=== PATIENT | female | born 1945 | race Caucasian/White ===

== ENCOUNTER 2018-11-12 16:51 | Inpatient (IN) | payer MEDICARE ==
[2018-11-12 17:38] LABS: #Basophils 0.1 thou/uL (0.0-0.2); #Eosinphils 0.4 thou/uL (0.0-0.7); #Lymphocytes 1.7 thou/uL (1.20-3.40); #Monocytes 0.7 thou/uL (0.11-0.59); #Neutrophils 5.1 thou/uL (1.40-6.50); %Basophils 0.8 % (0.0-1.0); %Eosinophils 5.1 % (0.0-10.0); %Lymphocytes 21.5 % (21.0-51.0); %Monocytes 8.8 % (0.0-10.0); %Neutrophils 63.7 % (42.0-75.0); Hemoglobin 10.5 g/dL (12.0-16.0); Mean Corpuscular HGB CONC 34.3 g/dL (32.0-36.0); Mean Corpuscular Hemoglobin 34.8 pg (27.0-31.0); Mean Platelet Volume 6.6 fL (7.4-10.4); Platelet Count 299 thou/uL (130-400); RBC Distribution Width 13.3 % (11.5-14.5); Red Blood Cell (RBC) Count 3.01 mill/uL (4.20-5.40); White Blood Cell (WBC) Count 8.1 thou/uL (4.8-10.8)
--- NOTE | 2018-11-12 17:49 | RAD ---
EXAM: Single view of the chest HISTORY: Preoperative radiograph COMPARISON: 08/03/2016 FINDINGS: Single view of the chest shows a normal sized cardiomediastinal silhouette. A calcified gr anuloma projects over the right lower lobe. There is no evidence of consolidation or pleural effusion. The bones are unremarkable. IMPRESSION: No evidence of acute cardiopulmonary disease
--- NOTE | 2018-11-12 17:50 | RAD ---
Exam: Single view of the pelvis HISTORY: Fall with deformity of the left hip COMPARISON: None FINDINGS: There is a left femoral neck fracture. No degenerative changes seen in either hip. Moderate soft tissue swelling is seen. IMPRESSION: Left femoral neck fracture
--- NOTE | 2018-11-12 17:51 | RAD ---
EXAM: 2 views of the left hip HISTORY: Left hip pain after fall COMPARISON: None FINDINGS: 2 views of the left hip shows a fracture of the left femoral neck. No degenerative changes are seen. No dislocation is present. IMPRESSION: Left femoral neck fracture
[2018-11-12 18:00] LABS: ALT (SGPT) 12 U/L (8-55); AST (SGOT) 13 U/L (5-34); Albumin 3.5 g/dL (3.4-4.8); Alkaline Phosphatase 78 U/L (40-150); Anion Gap 9 mmol/L (10-20); BUN (Urea Nitrogen) 7 mg/dL (9.8-20.1); Bilirubin, Total 0.4 mg/dL (0.2-1.2); CK (CPK) 60 U/L (29-168); Calc. Creatinine Clearance 0 mL/min (70-130); Calcium 8.1 mg/dL (7.8-10.44); Carbon Dioxide 22 mmol/L (23-31); Chloride 110 mmol/L (98-107); Estimated GFR-MDRD 81; Globulin 2.7 g/dL (2.4-3.5); Glucose 99 mg/dL (83-110); Potassium 3.1 mmol/L (3.5-5.1); Protein, Total 6.2 g/dL (6.0-8.3); Sodium 138 mmol/L (136-145)
[2018-11-12] MEDS ORDERED: Dextrose 5% in Water 1,000 ML IV PRN (18:30)
[2018-11-12] MEDS ORDERED: Dextrose 50% Abboject 50 ML SYRINGE SLOW IVP PRN (18:30)
[2018-11-12] MEDS ORDERED: HumaLOG 300 UNITS/3 ML VIAL SC PRN (18:30)
[2018-11-12] MEDS ORDERED: Ketorolac Tromethamine 30 MG/ML VIAL IVP PRN (18:34)
[2018-11-12] MEDS ORDERED: Ondansetron PF 4 MG/2 ML Vial ONE ×2 (18:35→18:36)
[2018-11-12] MEDS ORDERED: traMADol HCl 50 MG TAB PO PRN ×2 (18:35)
[2018-11-12] MEDS ORDERED: Morphine 4 MG/ML VIAL ONE (18:35)
--- NOTE | 2018-11-12 19:39 | HP ---
HISTORY OF PRESENT ILLNESS: Ms. Cantu is a 72-year-old female, who came into the ER for left hip pain after a mechanical fall at home. The patient reports she was visiting relative in [place], and while she was walking in a walker, something got stuck in the wheel of her walker, caused her to fall backward. She recall did not hit her head or loss of consciousness at the moment. After fell she had pain from the left hip. No pain of other parts of her body was reported. She went to the ER in [place]. Doctor in [place] talked that she would be better if she look for a surgeon in her hometown, so that is why she was sent home with hydrocodone and Cipro with family from [place] to [place], and admitted to the ER 3 days later. Upon arrival in the ER, the patient is awake, alert, and oriented x3. Vital signs stable. Complain of left hip pain. PAST MEDICAL HISTORY: The patient has a past medical history of COPD, using albuterol and Spiriva regularly. PAST SURGICAL HISTORY: She had multiple C-spine and lumbar spine surgeries include diskectomy and fusion due to spinal stenosis and herniated disk, that is the course of her to have a weak balance and she is using a walker regularly at home. SOCIAL HISTORY: She lives at home with her . She retired nurse. She reports using marijuana for pain. She uses tobacco from 4 tobacco to one pack a day. She denies drinking alcohol. The patient has a history of PTSD from previous divorce, bipolar depression, in which she used medication regularly. ALLERGIES: NO KNOWN DRUG ALLERGY. CURRENT MEDICATIONS: 1. Clonazepam 3 to 4 times a day. 2. Spiriva. 3. Albuterol inhaler. 4. Fluoxetine 40 mg daily. REVIEW OF SYSTEMS: Noncontributory except per HPI. PHYSICAL EXAMINATION: GENERAL: The patient is lying down in bed comfortably with no acute distress. Skin is pink and warm. The patient is oriented x3. Alert and awake. VITAL SIGNS: Respiratory rate 18, O2 saturation 95 on room air, blood pressure 152/88, and heart rate 81. HEENT: Atraumatic. No bruising. No deformity. No tender to palpation. NECK: Trachea midline. CHEST: No deformity. No bruising. Chest wall rise equal bilaterally. No tender to palpation. LUNGS: Clear bilaterally. HEART: Regular rate and rhythm. ABDOMEN: Soft, nondistended. No deformity. No tender to palpation. No rebound. Pelvis is stable. EXTREMITIES: Neurovascularly intact x4. Left hip, limited range of motion due to pain. NEUROLOGIC: No focal neurology deficits. LABORATORY DATA: Initial workup shows sodium 138, potassium 3.1, creatinine 0.71, CK 60. Hemoglobin 10.5, white count 8.1, and platelets 299. DIAGNOSTIC DATA: X-ray of the left hip demonstrates left femoral neck fracture. Chest x-ray shows no evidence of acute cardiopulmonary disease. ASSESSMENT: 1. Status post mechanical ground level fall. 2. Left hip fracture. 3. History of multiple neck and lumbar spine surgery, history of chronic obstructive pulmonary disease, posttraumatic stress disorder, and bipolar. PLAN: Dr. Manriquez will consult. Dr. Manriquez will take the patient to go to the OR for ORIF of left hip fracture tomorrow. The patient will be admitted to surgical floor for pain control and IV fluid. The patient will be on n.p.o. at midnight. She will initiate nonpharmacological DVT prophylaxis. Initiate gastritis prophylaxis. We will resume her home medication as soon as possible. Job ID: [id number]
[2018-11-12] MEDS ORDERED: clonazePAM 1 MG TAB PO SCH (21:00)
[2018-11-12] MEDS ORDERED: Gabapentin 100 MG CAP PO SCH (21:00)
[2018-11-12] MEDS: Sodium Chloride 0.9% 1,000 ML IV SCH (21:09)
[2018-11-12] MEDS: Acetaminophen 1,000 MG in Premix Bag 1 BAG IVPB SCH (21:09)
[2018-11-12] MEDS: Senokot S 8.6-50 MG TAB PO SCH (21:13)
[2018-11-12] MEDS: clonazePAM 1 MG TAB PO SCH (21:13)
[2018-11-12] MEDS: Famotidine/PF 20 mg/2ml Vial SLOW IVP SCH (21:13)
[2018-11-12] MEDS: Ketorolac Tromethamine 30 MG/ML VIAL IVP SCH (21:13)
--- NOTE | 2018-11-12 21:43 | CON ---
DATE OF CONSULTATION: CHIEF COMPLAINT: Left hip pain. HISTORY OF PRESENT ILLNESS: Ms. Cantu is a 72-year-old female who was out of town in [place] visiting family. She went with her cousin. She unfortunately fell while she was away. She sustained an injury to her left hip. She was found to have a left femoral neck fracture at the local emergency room. She decided to come back home to be treated. She was driven back home again by her family. She reports having a painful trip, but was able to make it back to [place] for further treatment. The patient has received pain medications. Orthopedics was consulted for treatment of her hip fracture. REVIEW OF SYSTEMS: Positive for left hip pain with movement. Otherwise, negative 10-point review of systems. PAST SURGICAL HISTORY: Cervical fusion. PAST MEDICAL HISTORY: Osteoporosis with previous compression fractures of the lumbar spine as well as mild COPD. FAMILY MEDICAL HISTORY: Noncontributory. SOCIAL HISTORY: The patient lives independently. She does use a walker for balance. She has a long history of smoking and occasional alcohol use. IMAGING DATA: X-rays are reviewed of the pelvis and left hip. These demonstrated displaced left femoral neck fracture. PHYSICAL EXAMINATION: VITAL SIGNS: Stable. She is afebrile, normotensive. GENERAL: She is alert and oriented. HEENT: Normocephalic and atraumatic. RESPIRATORY: Breathing comfortably. ABDOMEN: Soft, nontender, and nondistended. MUSCULOSKELETAL: The patient's left lower extremity has shortening. She has pain with hip motion. She is able to flex and extend the foot and ankle. She has a palpable dorsalis pedis pulse and sensation is intact in the foot. Right lower extremity and upper extremities are atraumatic. IMPRESSION: Left femoral neck fracture in a 72-year-old female. PLAN: The patient will be admitted to the hospital. She will have pain control. She will have DVT prophylaxis. She will have antibiotic surgical prophylaxis. She will need surgical intervention for this injury. I have discussed options. We will plan for a hemiarthroplasty of the left hip to restore function and prevent complications of prolonged bed rest. Risks have been reviewed, which to include DVT, PE, infection, wound complication, instability of the hip or implants, and others. She wants to proceed. Job ID: [id number]
[2018-11-12] MEDS: Morphine 2 MG/ML SYRINGE SLOW IVP PRN (22:02)
[2018-11-12] MEDS: Nicotine 14 MG PATCH TD SCH (22:02)
[2018-11-12 23:25] VITALS: BMI 18.8
--- NOTE | 2018-11-13 01:42 | PRG ---
DATE OF SERVICE: 11/13/2018 SUBJECTIVE: The patient is currently on the surgical floor. She has just moved up here from the emergency room. She is status post ground level fall that happened 3 days ago when she was visiting family. The patient had a ground level fall. She was evaluated in the emergency department, noted to have hip fracture, but per her decision, she returned to this area to undergo evaluation for surgery. PHYSICAL EXAMINATION: VITAL SIGNS: Stable. The patient is afebrile. GENERAL: The patient is resting comfortably in bed. She is awake, alert, and oriented x3. Sheri Coma Scale is 15. HEENT: Unremarkable. LUNGS: Clear to auscultation bilaterally. HEART: Regular rate and rhythm. ABDOMEN: Soft, flat, and nontender with active bowel sounds. EXTREMITIES: Neurovascularly intact x4. ASSESSMENT: 1. Status post ground level fall with remote presentation. 2. Left femoral neck fracture. 3. History of multiple neck and lumbar spine surgery, history of chronic obstructive pulmonary disease. 4. History of bipolar disorder and posttraumatic stress disorder. PLAN: Plan will be to have the patient be n.p.o. after midnight. We will do supportive care, pulmonary toilet, gastritis, mechanical VTE prophylaxis. The patient was evaluated in the emergency department by Dr. Manriquez and they planned to take her to the operating room tomorrow for surgical intervention. Job ID: [id number]
[2018-11-13] MEDS: Ketorolac Tromethamine 30 MG/ML VIAL IVP SCH ×4 (01:57→19:33)
[2018-11-13] MEDS: Morphine 2 MG/ML SYRINGE SLOW IVP PRN ×5 (01:57→21:50)
[2018-11-13] MEDS: Ondansetron PF 4 MG/2 ML Vial IVP PRN ×3 (01:59→19:41)
[2018-11-13] MEDS: Sodium Chloride 0.9% 1,000 ML IV SCH ×4 (02:02→21:50)
[2018-11-13] MEDS: Acetaminophen 1,000 MG in Premix Bag 1 BAG IVPB SCH ×3 (05:54→19:32)
[2018-11-13] MEDS ORDERED: Spiriva 18 MCG CAP (Box of 5 Caps) INH SCH (07:00)
[2018-11-13] MEDS: Senokot S 8.6-50 MG TAB PO SCH ×2 (08:19→19:34)
[2018-11-13] MEDS: Polyethylene Glycol 3350 17 GM Packet PO SCH (08:19)
[2018-11-13] MEDS: clonazePAM 1 MG TAB PO SCH ×3 (08:24→19:33)
[2018-11-13] MEDS: FLUoxetine HCl 20 MG CAP PO SCH (08:24)
[2018-11-13] MEDS: Famotidine/PF 20 mg/2ml Vial SLOW IVP SCH ×2 (08:24→19:33)
[2018-11-13] MEDS ORDERED: CEFAZOLIN 2 GM in Premix Bag 1 BAG IVPB SCH (12:00)
[2018-11-13] MEDS ORDERED: PROPOFOL 200 MG/20 ML VIAL ONE (12:50)
[2018-11-13] MEDS ORDERED: Rocuronium Bromide 10 MG/ML (10ML VIAL) ONE (12:50)
[2018-11-13] MEDS ORDERED: ePHEDrine 50 MG/ML VIAL ONE (12:50)
[2018-11-13] MEDS ORDERED: Lidocaine 1% PF 5 ML VIAL ONE (12:50)
[2018-11-13] MEDS ORDERED: Labetalol HCl 100 MG/20 ML VIAL ONE (12:50)
[2018-11-13] MEDS ORDERED: Fentanyl 100 MCG/2 ML VIAL ONE ×2 (13:13→14:27)
[2018-11-13] MEDS ORDERED: Midazolam HCl 2 mg/2 ml Vial ONE (13:24)
[2018-11-13] MEDS ORDERED: Promethazine HCl 25 MG/ML VIAL SLOW IVP PRN ×2 (13:57→15:16)
[2018-11-13] MEDS ORDERED: Promethazine HCl 25 MG/ML VIAL IM PRN ×2 (13:57→15:16)
[2018-11-13] MEDS ORDERED: Ondansetron HCl/PF 4 MG/2 ML Vial IVP PRN ×2 (13:57→15:16)
--- NOTE | 2018-11-13 15:14 | PRG ---
DATE OF SERVICE: 11/13/2018 SUBJECTIVE: The patient remains on the surgical floor. She is status post ground level fall, which she sustained left hip fracture 3 days ago while visiting family. She has been n.p.o. overnight. She has been awaiting her surgery today. She states that her pain is moderately controlled, and we will address this. OBJECTIVE: VITAL SIGNS: Temperature is 97.9, heart rate 71, blood pressure 132/61, respirations 16, and oxygen saturation 94% on room air. GENERAL: The patient is resting comfortably in bed. She is awake, alert, and oriented x3. Sheri Coma Scale is 15. HEENT: Unremarkable. LUNGS: Clear to auscultation with good inspiratory and expiratory effort. HEART: Regular rate and rhythm. ABDOMEN: Soft, flat, and nontender with active bowel sounds. EXTREMITIES: Neurovascularly intact x4. LABORATORY AND DIAGNOSTIC DATA: There are no labs or radiographs to review this morning. ASSESSMENT AND PLAN: 1. Status post ground level fall with remote presentation. 2. Left femoral neck fracture, awaiting surgery. 3. History of multiple neck and lumbar spine surgeries, history of chronic obstructive pulmonary disease. 4. History of bipolar disorder and posttraumatic stress disorder. Plan will be to continue supportive care. IV pain medications. Continue n.p.o. status. Postoperatively, we will begin VTE prophylaxis, physical and occupational therapy and we will discuss placement options. The patient was evaluated this morning with Dr. Mackey during rounds. Job ID: [id number]
[2018-11-13] MEDS ORDERED: Morphine Sulfate 2 MG/ML SYRINGE SLOW IVP PRN (15:16)
--- NOTE | 2018-11-13 15:54 | RAD ---
AP PELVIS: 11/13/18 HISTORY: Postop. AP view shows placement of a total hip prosthesis which appears to be in satisfactory position. There is no signs of fracture. IMPRESSION: Placement of a hip prosthesis. POS: TPC
--- NOTE | 2018-11-13 15:54 | RAD ---
LEFT HIP 1 VIEW: HISTORY: Postop. FINDINGS: Cross-table lateral view shows a left hip prosthesis in position. No signs of fracture. IMPRESSION: Placement of left hip prosthesis. POS: TPC
[2018-11-13] MEDS: CEFAZOLIN 2 GM in Premix Bag 1 BAG IVPB SCH (19:32)
[2018-11-13] MEDS: Nicotine 14 MG PATCH TD SCH (19:33)
--- NOTE | 2018-11-13 22:12 | OP ---
DATE OF PROCEDURE: 11/13/2018 OPERATION PERFORMED: Left hip hemiarthroplasty. PREOPERATIVE DIAGNOSIS: Left femoral neck fracture. POSTOPERATIVE DIAGNOSIS: Left femoral neck fracture. COMPLICATIONS: None. ESTIMATED BLOOD LOSS: 100 mL. BUS AND TROLLEY DISPATCHER: Benito Hernandez PA-C IMPLANTS: DePuy basic press-fit stem size 5, size +5 femoral head, size 44 mm bipolar shell. INDICATIONS: Ms. Cantu is a 72-year-old female who fell and fractured the left femoral neck. She was indicated for hemiarthroplasty of the hip to restore anatomic alignment and promote healing. Goal of surgery is to promote early mobilization. Risks have been reviewed, which to include infection, wound complication, nerve or vascular injury, instability, and others. DESCRIPTION OF PROCEDURE: Ms. Cantu was identified in the preoperative holding area. Her correct extremity was marked. She was carried to the operating room. She was positioned supine. General anesthesia was induced. The left lower extremity was prepped and draped in sterile fashion. We began the procedure with a posterior approach to the hip. We dissected down through the subcutaneous tissues to the fascia, which was opened. We exposed the short external rotators of the hip. We then examined the deep structures. The femoral head was removed. We then made a new osteotomy with our oscillating saw. At this point, we cleared the acetabulum off bony fragments. We then thoroughly irrigated. Next, we prepared the femoral canal. We entered the canal, followed by broaching up to a size 5 broach. We trialed off the broach. We reamed part prior to broaching. The +5 femoral head gave appropriate leg length and was very stable. We then removed the trial components and placed our final components, again we reduced the hip. We then thoroughly irrigated and closed the deep tissues with #5 Ethibond suture through drill holes followed by #2 Ethibond suture and layered closure. Sterile dressing was applied. The patient was taken to the recovery room in good condition at this point. Job ID: [id number]
[2018-11-14] MEDS: Ondansetron PF 4 MG/2 ML Vial IVP PRN ×2 (01:56→09:25)
[2018-11-14] MEDS: Ketorolac Tromethamine 30 MG/ML VIAL IVP SCH ×2 (01:56→08:46)
[2018-11-14] MEDS: Morphine 2 MG/ML SYRINGE SLOW IVP PRN ×2 (01:56→05:45)
[2018-11-14] MEDS: Acetaminophen 325 MG TAB PO SCH ×4 (05:45→23:06)
[2018-11-14] MEDS: CEFAZOLIN 2 GM in Premix Bag 1 BAG IVPB SCH (05:45)
[2018-11-14] MEDS ORDERED: Acetaminophen/Codeine 30-300mg Tablet PO PRN (09:13)
[2018-11-14] MEDS ORDERED: Loperamide HCl 2 MG CAP PO PRN (09:13)
[2018-11-14] MEDS ORDERED: Promethazine 25 MG TAB PO PRN (09:13)
[2018-11-14] MEDS: clonazePAM 1 MG TAB PO SCH ×3 (09:24→20:12)
[2018-11-14] MEDS: Polyethylene Glycol 3350 17 GM Packet PO SCH (09:24)
[2018-11-14] MEDS: Ibuprofen 200 MG TAB PO SCH ×2 (09:24→15:47)
[2018-11-14] MEDS: FLUoxetine HCl 20 MG CAP PO SCH (09:24)
[2018-11-14] MEDS: Enoxaparin Sodium 30 MG/0.3 ML SYRINGE SC SCH (09:24)
[2018-11-14] MEDS: Senokot S 8.6-50 MG TAB PO SCH ×2 (09:25→20:13)
[2018-11-14] MEDS: Famotidine 20 MG TAB PO SCH ×2 (09:25→20:13)
[2018-11-14] MEDS ORDERED: Zolpidem Tartrate 5 MG TAB PO PRN ×2 (10:43→10:44)
[2018-11-14] MEDS ORDERED: Fioricet 325/50/40 mg Tablet PO PRN ×2 (10:54→13:07)
--- NOTE | 2018-11-14 11:48 | ULT ---
BILATERAL LOWER EXTREMITY VENOUS DOPPLER ULTRASOUND: Date: 11/14/18 HISTORY: Recent left hip fracture, fever. TECHNIQUE: Witt scale ultrasound with color flow and spectral Doppler imaging of the deep venous systems of the lower extremities was performed bilaterally. FINDINGS: There is good flow, compression, and augmentation noted in the common femoral, femoral, deep femoral, popliteal, posterior tibial, and greater saphenous veins on either side. IMPRESSION: No evidence of deep venous thrombosis in either lower extremity. POS: TPC
--- NOTE | 2018-11-14 13:28 | RAD ---
EXAM: Single view of the chest HISTORY: Postoperative fever COMPARISON: 11/12/2018 FINDINGS: Single view of the chest shows a normal sized cardiomediastinal silhouette. A calcified gr anuloma projects over the right lower lobe. There is no evidence of consolidation or pleural effusion. Degenerative changes and postsurgical changes are seen in the spine. IMPRESSION: No evidence of acute cardiopulmonary disease
[2018-11-14 14:33] LABS: #Eosinphils 0.5 thou/uL (0.0-0.7); #Lymphocytes 1.8 thou/uL (1.20-3.40); #Monocytes 1.1 thou/uL (0.11-0.59); #Neutrophils 5.8 thou/uL (1.40-6.50); %Basophils 0.2 % (0.0-1.0); %Eosinophils 5.4 % (0.0-10.0); %Lymphocytes 20.1 % (21.0-51.0); %Monocytes 11.5 % (0.0-10.0); %Neutrophils 62.9 % (42.0-75.0); Hemoglobin 8.1 g/dL (12.0-16.0); Mean Corpuscular HGB CONC 34.1 g/dL (32.0-36.0); Mean Corpuscular Hemoglobin 34.6 pg (27.0-31.0); Platelet Count 269 thou/uL (130-400); RBC Distribution Width 13.3 % (11.5-14.5); Red Blood Cell (RBC) Count 2.33 mill/uL (4.20-5.40); White Blood Cell (WBC) Count 9.1 thou/uL (4.8-10.8)
[2018-11-14 14:51] LABS: Anion Gap 9 mmol/L (10-20); BUN (Urea Nitrogen) 7 mg/dL (9.8-20.1); Calc. Creatinine Clearance 58 mL/min (70-130); Calcium 7.8 mg/dL (7.8-10.44); Carbon Dioxide 22 mmol/L (23-31); Chloride 107 mmol/L (98-107); Estimated GFR-MDRD 88; Glucose 123 mg/dL (83-110); Magnesium 1.7 mg/dL (1.6-2.6); Phosphorus 2.7 mg/dL (2.3-4.7); Sodium 135 mmol/L (136-145)
[2018-11-14 15:04] LABS: Potassium 2.9 mmol/L (3.5-5.1)
[2018-11-14] MEDS ORDERED: Potassium Phosphate 30 MMOL in Sodium Chloride 0.9% 500 ML IVPB SCH (15:15)
[2018-11-14] MEDS: Gabapentin 300 MG CAP PO SCH ×2 (15:47→20:13)
[2018-11-14] MEDS: tiZANidine HCl 4 MG TAB PO SCH ×2 (15:47→20:13)
--- NOTE | 2018-11-14 16:09 | PQF ---
JAZMIN TO GARY PA- C [id number] SURG B- [id number] CLINICAL DOCUMENTATION IMPROVEMENT CLARIFICATION FORM: ICD-10 Updated PLEASE DO AN ADDENDUM TO THE PROGRESS NOTE WITH ANY DOCUMENTATION UPDATES OR ADDITIONS AND CARRY THROUGH TO DC SUMMARY. THANK YOU. Date: 11/14/18 ATTN: CHANO Please exercise your independent, professional judgment in responding to the clarification form. Clinical indicators are provided on the bottom of this form for your review. Please check appropriate box(s): [ ] Protein Calorie Malnutrition: [ ] Mild [ ] Moderate [ ] Severe [ ] Cachexia [ ] Other diagnosis [ X ] Unable to determine In addition, please specify: Present on Admission (POA): [ X ] Yes [ ] No [ ] Unable to determine CLINICAL INDICATORS - SIGNS / SYMPTOMS / LABS 11/13 SPORTS EQUIPMENT REPAIRER CONSULT: TRIGGERED FOR LOW BMI 18.8; THE PATIENT REPORTS SHE HAS NOT HAD AN APPETITE D/T NAUSEA AND VOMITING FOR 2-3 DAYS. sHE COMPLAINED OF PAIN. SHE IS NOTED TO BE MISSING TEETH, BUT DENIED TROUBLE CHEWING /SWALLOWING. --PATIENT OBSERVED WITH PROTRUDING CLAVICLE AND MODERATE MUSCLE WASTING TO THE TRAPEZIUS NUTRITION DX: UNDERWEIGHT RISK: ADVANCED AGE (72), COPD , PTSD, BIPOLAR , DX: LEFT FEMORAL NECK FX (H&P/PRABHAKAR) TREATMENTS: DIETARY CONSULT (11/13) ENSURE ENLIVE () Moderate Malnutrition (in acute illness) Energy Intake: <75% of estimated energy requirement for > 7 days Weight Loss: 1-2%/1 week; 5%/ 1 month; 7.5%/3 months Other: mild body fat loss; mild muscle mass loss; mild fluid accumulation; Severe Malnutrition (in acute illness) Energy Intake: < 50% of estimated energy requirement for > 5 days Weight Loss: >1-2%/1 week; >5%/1 month; >7.5%/3 months Other: moderate body fat loss; moderate muscle mass loss; moderate- severe fluid accumulation; measurably SAP Appointment Manager [employer] Winform Viewerreduced automobile or truck rental dispatcher strength Moderate Malnutrition (in chronic illness) Energy Intake: <75% of estimated energy requirement for >1 month Weight Loss: 5%/1 month; 7.5%/3 months; 10%/6 months; 20%/1 year Other: mild body fat loss; mild muscle mass loss; mild fluid accumulation Severe Malnutrition (in chronic illness) Energy Intake: <75% of estimated energy requirement for >1 month Weight Loss: >5%/1 month; >7.5%/3 months; >10%/6 months; >20%/1 year Other: severe body fat loss; severe muscle mass loss; severe fluid accumulation ; measurably reduced automobile or truck rental dispatcher strength THANK YOU! [employer]ART[employer] (This form is maintained as a part of the permanent medical record) 2014 [employer]. All Rights Reserved [email or web address] [phone] MTDD
[2018-11-14 16:13] LABS: Bilirubin Negative (Negative); Blood, Urine Negative (Negative); Clarity Clear (Clear); Glucose, Urine (Dipstick) Normal (Negative); Leukocyte Negative Leu/uL (Negative); Nitrite Negative (Negative); Protein, Urine (Dipstick) Negative (Neg-Trace); Urobilinogen Normal mg/dL (Less than 2)
--- NOTE | 2018-11-14 18:55 | PRG ---
DATE OF SERVICE: 11/14/2018 SUBJECTIVE: Ms. Cantu is a 72-year-old female, status post ground level fall. She sustained left fracture. She underwent ORIF of left hip fracture, postop day 1. Postop the patient is doing good. Pain is well controlled. However, she developed fever during last night with no signs of acute respiratory distress. The patient is lying down in bed comfortable with no acute respiratory distress. OBJECTIVE: VITAL SIGNS: This morning, temperature 101, heart rate is 112, O2 saturation 94 on room air, respiratory rate is 16, and blood pressure 127/71. LUNGS: Clear bilaterally. HEART: Regular in rate and rhythm. ABDOMEN: Soft, nondistended. EXTREMITIES: Neurovascularly intact x4. Dressing clean, clear, and intact. LABORATORY DATA: Shows sodium 135, potassium 2.9, creatinine is 0.56. White count is 9.1 and hemoglobin is 8.1. Chest x-ray shows no evidence of acute cardiopulmonary disease. Venogram normal. No evidence of deep venous thrombosis in either lower extremity. ASSESSMENT: 1. Status post ground level fall. 2. Left hip fracture, status post open reduction and internal fixation of left hip fracture, postop day 1. Postop fever with negative PE or VTE and normal white count. 3. History of bipolar disorder, posttraumatic stress disorder, and history of multiple spine surgeries. PLAN: We will have UA ordered. However, the patient's fever resolved without any intervention. Most likely fever due to stress reaction. We will continue to follow up tomorrow. Encourage working with PT/OT. Continue VTE prophylaxis. Job ID: [id number] MTDD
[2018-11-14] MEDS: diphenhydrAMINE 25 MG CAP PO SCH (20:14)
[2018-11-14 20:40] LABS: Anion Gap 9 mmol/L (10-20); BUN (Urea Nitrogen) 9 mg/dL (9.8-20.1); Calc. Creatinine Clearance 58 mL/min (70-130); Calcium 7.5 mg/dL (7.8-10.44); Carbon Dioxide 23 mmol/L (23-31); Chloride 110 mmol/L (98-107); Estimated GFR-MDRD 88; Glucose 114 mg/dL (83-110); Potassium 3.2 mmol/L (3.5-5.1); Sodium 139 mmol/L (136-145)
[2018-11-14] MEDS: Nicotine 14 MG PATCH TD SCH (21:08)
[2018-11-14] MEDS: traMADol HCl 50 MG TAB PO PRN (23:06)
[2018-11-15] MEDS: Ibuprofen 200 MG TAB PO SCH ×5 (02:22→18:26)
[2018-11-15] MEDS: Acetaminophen 325 MG TAB PO SCH (05:33)
[2018-11-15 06:01] LABS: Anion Gap 9 mmol/L (10-20); BUN (Urea Nitrogen) 13 mg/dL (9.8-20.1); Calc. Creatinine Clearance 56 mL/min (70-130); Calcium 7.6 mg/dL (7.8-10.44); Carbon Dioxide 22 mmol/L (23-31); Chloride 111 mmol/L (98-107); Estimated GFR-MDRD 85; Glucose 102 mg/dL (83-110); Magnesium 1.9 mg/dL (1.6-2.6); Phosphorus 3.3 mg/dL (2.3-4.7); Potassium 3.6 mmol/L (3.5-5.1); Sodium 138 mmol/L (136-145)
[2018-11-15 06:17] LABS: #Eosinphils 0.5 thou/uL (0.0-0.7); #Monocytes 0.9 thou/uL (0.11-0.59); #Neutrophils 4.8 thou/uL (1.40-6.50); %Basophils 0.3 % (0.0-1.0); %Eosinophils 6.3 % (0.0-10.0); %Lymphocytes 24.4 % (21.0-51.0); %Monocytes 10.7 % (0.0-10.0); %Neutrophils 58.3 % (42.0-75.0); Hemoglobin 7.2 g/dL (12.0-16.0); Mean Corpuscular HGB CONC 33.9 g/dL (32.0-36.0); Mean Corpuscular Hemoglobin 34.6 pg (27.0-31.0); Mean Platelet Volume 7.1 fL (7.4-10.4); Platelet Count 258 thou/uL (130-400); RBC Distribution Width 13.7 % (11.5-14.5); Red Blood Cell (RBC) Count 2.09 mill/uL (4.20-5.40); White Blood Cell (WBC) Count 8.1 thou/uL (4.8-10.8)
--- NOTE | 2018-11-15 06:17 | PRG ---
DATE OF SERVICE: 11/15/2018 SUBJECTIVE: The patient is currently on the surgical floor. She is status post ground level fall, which she sustained 3 days prior to presenting to our facility. Today, she underwent open reduction and internal fixation of her hip fracture. The patient is postop day #1 from her open reduction and internal fixation of her left femoral neck fracture. Today, she reportedly had a fever. She underwent evaluation for DVT. Her ultrasound was negative. After encouraging pulmonary toilet and incentive spirometry use, the patient's fever has resolved. OBJECTIVE: VITAL SIGNS: Stable. The patient does appear to have a slowly downward trending systolic blood pressure. GENERAL: We will recheck labs this morning. Otherwise, the patient is resting comfortably. She is asleep in bed. She does not appear to be in any distress. ASSESSMENT/PLAN: 1. Status post ground level fall with remote presentation. 2. Status post open reduction and internal fixation of left femoral neck fracture. 3. History of bipolar disorder, post-traumatic stress disorder, and multiple neck and lumbar spine surgeries. Plan will be to check labs this morning. Continue supportive care. Encourage physical and occupational therapy and await placement decision. Job ID: [id number]
[2018-11-15] MEDS ORDERED: Hydrocortisone Sod Succ/PF 100 mg/2 ml Vial IVP SCH (07:45)
[2018-11-15] MEDS: Ferrous Sulfate 325 MG TAB PO SCH ×2 (08:46→18:18)
[2018-11-15] MEDS: Enoxaparin Sodium 30 MG/0.3 ML SYRINGE SC SCH (08:47)
[2018-11-15] MEDS: clonazePAM 1 MG TAB PO SCH ×3 (08:47→20:23)
[2018-11-15] MEDS: Ascorbic Acid 500 mg Chewable Tablet PO SCH ×2 (08:47→20:23)
[2018-11-15] MEDS: Senokot S 8.6-50 MG TAB PO SCH ×2 (08:48→20:23)
[2018-11-15] MEDS: Gabapentin 300 MG CAP PO SCH ×3 (08:48→20:23)
[2018-11-15] MEDS: tiZANidine HCl 4 MG TAB PO SCH ×3 (08:48→20:23)
[2018-11-15] MEDS: Famotidine 20 MG TAB PO SCH ×2 (08:48→20:23)
[2018-11-15] MEDS: Polyethylene Glycol 3350 17 GM Packet PO SCH (08:48)
[2018-11-15] MEDS: FLUoxetine HCl 20 MG CAP PO SCH (08:48)
[2018-11-15] MEDS ORDERED: ZANTAC 300 MG PO SCH (09:00)
[2018-11-15] MEDS ORDERED: HYDROcodone/Acetaminophen 5/325 mg Tablet PO PRN (10:37)
[2018-11-15] MEDS ORDERED: Acetaminophen 325 MG TAB PO PRN (10:38)
[2018-11-15] MEDS ORDERED: Sodium Chloride 0.9% 500 ML IV SCH (11:45)
[2018-11-15] MEDS: HYDROcodone/Acetaminophen 5/325 mg Tablet PO PRN ×2 (12:27→21:58)
[2018-11-15] MEDS: Hydrocortisone Sod Succ/PF 100 mg/2 ml Vial IVP SCH ×2 (12:29→18:19)
--- NOTE | 2018-11-15 13:36 | EKG ---
Test Reason : Blood Pressure : / mmHG Vent. Rate : 086 BPM Atrial Rate : 086 BPM P-R Int : 152 ms QRS Dur : 074 ms QT Int : 388 ms P-R-T Axes : 046 078 049 degrees QTc Int : 464 ms Normal sinus rhythm Normal ECG Confirmed by MALACHI RAO ([id number]), restaurant expeditor MARIA TERESA GREEN ([id number]) on 11/15/2018 1:36:22 PM Referred By: Confirmed By:MALACHI RAO
--- NOTE | 2018-11-15 15:18 | PRG ---
DATE OF SERVICE: 11/15/2018 SUBJECTIVE: Ms. Cantu is a 72-year-old female, status post ground level fall. She sustained left hip fracture. She underwent ORIF of left hip fracture postop day 2. Postop, the patient doing good. Pain is well controlled. She developed fever yesterday; however, the fever resolved by itself with no intervention since yesterday afternoon. The patient developed no acute respiratory distress. She tolerated her regular diet. Urine is adequate. OBJECTIVE: VITAL SIGNS: This morning, Temperature 98, heart rate 88, respiratory rate 20, O2 saturation 98 on 2 L of cannula, and blood pressure 112/67. LUNGS: Clear bilaterally. HEART: Regular rate and rhythm. ABDOMEN: Soft, nondistended. EXTREMITIES: Neurovascularly intact x4. Left hip dressing clean, dry, intact. NEUROLOGY: No focal neurology deficits. LABORATORY DATA: This morning, hemoglobin 7.2, white count 8.1. Sodium 138, potassium 3.6, creatinine is 0.58, and cortisol level at 8.1. ASSESSMENT: 1. Status post ground level fall. 2. Left hip fracture, status post open reduction and internal fixation of left hip fracture, postop day 2. 3. Hypokalemia, resolved. 4. Renal insufficiency. PLAN: The patient will have hydrocortisone for low blood pressure and low cortisol level. The patient will continue supportive care. Continue pain control. Continue VTE prophylaxis. Encourage working with PT/OT. The patient is pending placement in rehabilitation facility. Job ID: [id number]
[2018-11-15] MEDS: traMADol HCl 50 MG TAB PO PRN (18:25)
[2018-11-15] MEDS: diphenhydrAMINE 25 MG CAP PO SCH (20:23)
[2018-11-15] MEDS: Nicotine 14 MG PATCH TD SCH (21:58)
[2018-11-16] MEDS: Hydrocortisone Sod Succ/PF 100 mg/2 ml Vial IVP SCH ×2 (00:05→06:15)
--- NOTE | 2018-11-16 00:31 | PRG ---
DATE OF SERVICE: 11/16/2018 SUBJECTIVE: The patient is currently on the surgical floor. She is status post ground level fall when she sustained a left hip fracture. She has undergone open reduction and internal fixation of same. She is postop day 2 from that procedure. The patient had some pain control issues this morning. Orthopedics adjusted, adding [place] to her pain control regimen. During my discussion with her this evening, it was noted that the patient had a long history of [place] use for headaches noted previously. Otherwise, the patient is tolerating her diet and she started working with Physical and Occupational Therapy. Today, the patient was also noted to be adrenally insufficient and was started on hydrocortisone. OBJECTIVE: VITAL SIGNS: Stable. The patient is afebrile. GENERAL: The patient is resting comfortably in bed. She is awake, alert, and oriented x3. Sheri Coma Scale is 15. HEENT: Unremarkable. LUNGS: Clear to auscultation with good inspiratory and expiratory effort. HEART: Regular rate and rhythm. ABDOMEN: Soft, flat, nontender with active bowel sounds. EXTREMITIES: Neurovascularly intact x4. Postop dressing is clean, dry, and intact. ASSESSMENT/PLAN: 1. Status post ground level fall. 2. Status post open reduction and internal fixation of left hip fracture, postop day #2. 3. Hypokalemia, resolved. 4. Adrenal insufficiency, treated with hydrocortisone. PLAN: Plan will be to continue supportive care. Encourage physical and occupational therapy and discussed placement. Job ID: [id number]
[2018-11-16] MEDS: Ibuprofen 200 MG TAB PO SCH ×3 (00:32→16:36)
[2018-11-16 04:07] LABS: Hemoglobin 9.6 g/dL (12.0-16.0); Platelet Count 302 thou/uL (130-400)
[2018-11-16] MEDS: HYDROcodone/Acetaminophen 5/325 mg Tablet PO PRN ×3 (06:15→20:18)
[2018-11-16] MEDS: Polyethylene Glycol 3350 17 GM Packet PO SCH (09:18)
[2018-11-16] MEDS: Famotidine 20 MG TAB PO SCH ×2 (09:19→20:16)
[2018-11-16] MEDS: FLUoxetine HCl 20 MG CAP PO SCH (09:19)
[2018-11-16] MEDS: Enoxaparin Sodium 30 MG/0.3 ML SYRINGE SC SCH (09:19)
[2018-11-16] MEDS: tiZANidine HCl 4 MG TAB PO SCH ×3 (09:19→20:16)
[2018-11-16] MEDS: Senokot S 8.6-50 MG TAB PO SCH ×2 (09:19→20:16)
[2018-11-16] MEDS: Ascorbic Acid 500 mg Chewable Tablet PO SCH ×2 (09:20→20:16)
[2018-11-16] MEDS: Gabapentin 300 MG CAP PO SCH ×3 (09:20→20:16)
[2018-11-16] MEDS: Ferrous Sulfate 325 MG TAB PO SCH ×2 (09:20→16:35)
[2018-11-16] MEDS: clonazePAM 1 MG TAB PO SCH ×3 (09:20→20:16)
--- NOTE | 2018-11-16 14:35 | PRG ---
DATE OF SERVICE: 11/16/2018 SUBJECTIVE: Ms. Cantu is a 72-year-old female, status post ground level fall. She sustained left hip fracture. She underwent ORIF of left hip fracture, postoperative day 3. Postoperatively, the patient reports doing good. Pain is well controlled. Developed no fever or shortness of breath. Vital signs have been stable. She is tolerating her regular diet. She has not yet had bowel movement, but she denies laxative at the moment. OBJECTIVE: GENERAL: The patient is lying down in bed comfortably with no acute distress. VITAL SIGNS: Temperature 99, heart rate 108, blood pressure 122/67, respiratory rate 16, O2 saturation 96% on room air. LUNGS: Clear bilaterally. HEART: Regular rate and rhythm. ABDOMEN: Soft and nondistended. EXTREMITIES: Neurovascularly intact x4. Normal range of motion. NEUROLOGIC: No focal neurology deficits. ASSESSMENT: 1. Status post ground level fall. 2. Left hip fracture, status post open reduction and internal fixation of left hip fracture, postoperative day 3. 3. Hypokalemia, resolved. 4. Renal insufficiency, stable. PLAN: We will discontinue hydrocortisone at the moment because her blood pressure is stable. We will continue supportive care. Continue pain control. Continue VTE and encourage working with PT/OT. The patient is pending rehabilitation facility. Resume all of her home medications. Job ID: [id number]
[2018-11-16] MEDS: traMADol HCl 50 MG TAB PO PRN (16:35)
[2018-11-16] MEDS: diphenhydrAMINE 25 MG CAP PO SCH (20:16)
[2018-11-16] MEDS: Nicotine 14 MG PATCH TD SCH (21:31)
[2018-11-17] MEDS: Ibuprofen 200 MG TAB PO SCH ×4 (00:02→23:43)
[2018-11-17] MEDS: HYDROcodone/Acetaminophen 5/325 mg Tablet PO PRN ×4 (02:04→19:58)
--- NOTE | 2018-11-17 02:55 | PRG ---
DATE OF SERVICE: 11/17/2018 SUBJECTIVE: The patient is currently on the surgical floor. She is status post open reduction and internal fixation of a left hip fracture. She states today her pain is much better controlled. She was able to work more with physical therapy. She is tolerating a diet. PHYSICAL EXAMINATION: VITAL SIGNS: Stable. The patient is afebrile. GENERAL: The patient is resting comfortably in bed. She is awake, alert, and oriented x3. [place] Coma Scale is 15. RESPIRATORY: Respirations appear nonlabored. SKIN: Postop dressing is clean, dry, and intact. ASSESSMENT/PLAN: 1. Status post ground level fall. 2. Status post open reduction and internal fixation of left hip fracture, postoperative day #3. 3. Hypokalemia, resolved. 4. Acute blood loss anemia, improved, stable. 5. Adrenal insufficiency, undergoing treatment with hydrocortisone, improved. 6. We would continue supportive care. 7. Encourage physical and occupational therapy and await final placement decision. Job ID: [id number]
[2018-11-17] MEDS: Ferrous Sulfate 325 MG TAB PO SCH ×2 (07:44→17:22)
[2018-11-17] MEDS: FLUoxetine HCl 20 MG CAP PO SCH (07:44)
[2018-11-17] MEDS: Famotidine 20 MG TAB PO SCH ×2 (07:45→20:00)
[2018-11-17] MEDS: Senokot S 8.6-50 MG TAB PO SCH ×2 (07:45→20:00)
[2018-11-17] MEDS: Ascorbic Acid 500 mg Chewable Tablet PO SCH ×2 (07:45→17:22)
[2018-11-17] MEDS: clonazePAM 1 MG TAB PO SCH ×3 (07:45→20:00)
[2018-11-17] MEDS: tiZANidine HCl 4 MG TAB PO SCH ×3 (07:46→20:00)
[2018-11-17] MEDS: Gabapentin 300 MG CAP PO SCH ×3 (07:46→20:00)
[2018-11-17] MEDS: Polyethylene Glycol 3350 17 GM Packet PO SCH (07:46)
[2018-11-17] MEDS: Enoxaparin Sodium 30 MG/0.3 ML SYRINGE SC SCH (07:46)
--- NOTE | 2018-11-17 14:01 | PRG ---
DATE OF SERVICE: 11/17/2018 SUBJECTIVE: The patient is currently on the surgical floor. She is status post open reduction and internal fixation of left hip fracture, postop day #4. She states today her pain is doing well. She has continued to work with PT today. She is tolerating her diet. OBJECTIVE: VITAL SIGNS: Stable. Temp 98.6, heart rate 108, respiratory rate 18, O2 of 91 on room air, blood pressure 157/67. GENERAL: The patient is resting comfortably in bed. She is awake, alert, and oriented x3. CARDIAC: Regular rate and rhythm. RESPIRATORY: Clear to auscultation bilaterally. SKIN: Postop dressing is clean, dry, and intact. ASSESSMENT: 1. Status post ground level fall, status post open reduction and internal fixation of left hip fracture, postoperative day 4. 2. Hypokalemia, resolved. 3. Acute blood loss anemia, improved, stable. 4. Adrenal insufficiency. PLAN: Currently on hydrocortisone for adrenal insufficiency. Blood pressure is stable. We will continue supportive care. Encourage physical and occupational therapy, and we will await final placement decision. Job ID: [id number] [facility]
[2018-11-17] MEDS: Hydrocortisone Sod Succ/PF 100 mg/2 ml Vial IVP SCH ×2 (14:04→18:34)
[2018-11-17] MEDS: diphenhydrAMINE 25 MG CAP PO SCH (20:00)
[2018-11-17] MEDS: Nicotine 14 MG PATCH TD SCH (21:04)
--- NOTE | 2018-11-17 22:34 | PRG ---
DATE OF SERVICE: 11/17/2018 SUBJECTIVE: The patient is currently on the surgical floor. She is status post open reduction and internal fixation of a left hip fracture. The patient made significant advances with physical therapy today. She states her pain is controlled. She is tolerating a diet. OBJECTIVE: VITAL SIGNS: Stable. The patient is afebrile. GENERAL: The patient is resting comfortably in bed. She is awake, alert, and oriented x3. HEENT: Unremarkable. CHEST: Respirations are nonlabored. EXTREMITIES: Neurovascularly intact x4. Postop dressing is clean, dry, and intact. ASSESSMENT AND PLAN: 1. Status post ground level fall. 2. Status post open reduction and internal fixation of left hip fracture, postop day 4. 3. Hypokalemia, resolved. 4. Acute blood loss anemia, improved, stable. 5. Adrenal insufficiency, stable. PLAN: Plan will be to continue supportive care. Encourage physical and occupational therapy. We will discontinue her hydrocortisone tomorrow and await final placement decision. Job ID: [id number]
[2018-11-17] MEDS ORDERED: Ibuprofen 200 MG TAB PO SCH (23:59)
[2018-11-18] MEDS: HYDROcodone/Acetaminophen 5/325 mg Tablet PO PRN ×5 (02:14→20:16)
[2018-11-18] MEDS ORDERED: Acetaminophen 325 MG TAB PO SCH (07:50)
[2018-11-18] MEDS: tiZANidine HCl 4 MG TAB PO SCH ×3 (09:15→20:16)
[2018-11-18] MEDS: FLUoxetine HCl 20 MG CAP PO SCH (09:15)
[2018-11-18] MEDS: Senokot S 8.6-50 MG TAB PO SCH ×2 (09:16→20:16)
[2018-11-18] MEDS: Ferrous Sulfate 325 MG TAB PO SCH ×2 (09:16→18:55)
[2018-11-18] MEDS: Gabapentin 300 MG CAP PO SCH ×3 (09:16→20:15)
[2018-11-18] MEDS: Ascorbic Acid 500 mg Chewable Tablet PO SCH ×2 (09:17→18:55)
[2018-11-18] MEDS: Enoxaparin Sodium 30 MG/0.3 ML SYRINGE SC SCH (09:17)
[2018-11-18] MEDS: Famotidine 20 MG TAB PO SCH ×2 (09:17→20:15)
[2018-11-18] MEDS: clonazePAM 1 MG TAB PO SCH ×3 (09:17→20:15)
[2018-11-18] MEDS: traMADol HCl 50 MG TAB PO PRN ×2 (09:18→13:03)
[2018-11-18] MEDS: Ibuprofen 200 MG TAB PO SCH ×3 (10:42→23:35)
[2018-11-18] MEDS: Polyethylene Glycol 3350 17 GM Packet PO SCH (14:16)
[2018-11-18] MEDS: Acetaminophen 325 MG TAB PO SCH ×3 (14:18→23:35)
--- NOTE | 2018-11-18 17:10 | PRG ---
DATE OF SERVICE: 11/18/2018 SUBJECTIVE: The patient was seen this morning, sitting up in bed with no signs of acute distress. She reports she slept well overnight and pain is well controlled. She is restarted on all of her home medications. The patient reports walking around the entire nursing floor with physical therapy and a rolling walker. She reports that she would prefer to be discharged home with home physical therapy. She does have a walker at home already. OBJECTIVE: VITAL SIGNS: Temperature 98.3, pulse 94, respirations 18, oxygen saturation 96% on room air. GENERAL: A well-appearing, elderly female, sitting up in bed with no signs of acute distress. PULMONARY: Equal chest rise and fall. Clear breath sounds bilaterally. No signs of acute respiratory distress. CARDIAC: Regular rate and rhythm. No murmurs, gallops, or rubs. GI: Abdomen is soft, nontender, nondistended. EXTREMITIES: 2+ pulses in all extremities. No significant swelling noted. Gross motor and sensation are intact. NEUROLOGIC: GCS is 15. LABORATORY FINDINGS: There are no new laboratory findings to discuss. DIAGNOSTIC FINDINGS: There are no new diagnostic findings to discuss. ASSESSMENT: 1. Status post mechanical fall from standing. 2. Left femoral neck fracture, status post repair. 3. Acute adrenal insufficiency, stable. 4. History of chronic obstructive pulmonary disease, posttraumatic stress disorder, and bipolar disorder. PLAN: Continue current pain medications and diet. Continue working with Physical and Occupational Therapy. We will start the process for home physical therapy. The patient does have a walker at home and a ramp to get into her house. She will likely be ready for discharge tomorrow. In the meantime, we will continue to provide supportive care. Continue all current home medications as previously prescribed. The patient was seen and examined by Dr. Mackey and myself this morning during rounds. Job ID: [id number]
[2018-11-18] MEDS: diphenhydrAMINE 25 MG CAP PO SCH (20:15)
[2018-11-18] MEDS: Nicotine 14 MG PATCH TD SCH (21:23)
--- NOTE | 2018-11-18 22:30 | PRG ---
DATE OF SERVICE: 11/18/2018 SUBJECTIVE: The patient remains on the surgical floor. The patient is sitting up in bed in no acute distress. The patient states she was able to walk 500 feet with physical therapy today. The patient does report some increased pain to her left hip as she thinks she might have overdid it today with physical therapy. The patient continues to tolerate a regular diet. The patient voices no other complaints at this time. OBJECTIVE: VITAL SIGNS: Stable, afebrile. GENERAL: The patient is awake, alert, sitting up in hospital bed, in no acute distress. PULMONARY: Equal chest rise and fall. Respirations even, nonlabored. EXTREMITIES: Moves all extremities. No significant swelling noted. Gross motor and sensation intact. 2+ pulses in all extremities. Left hip dressing clean, dry, and intact. ASSESSMENT: 1. Status post mechanical fall from standing. 2. Left femoral neck fracture postop day 5, status post left hip hemiarthroplasty. 3. Acute adrenal insufficiency, stable. 4. History of chronic obstructive pulmonary disease, posttraumatic stress disorder, bipolar disorder. PLAN: Continue current pain medications and regular diet as tolerated. We will continue Ensure supplements. We will continue to have the patient work with Physical and Occupational Therapy. The patient will most likely be discharged home tomorrow with home physical therapy. The plan was discussed with the patient, who agrees. Job ID: [id number]
[2018-11-19] MEDS: Acetaminophen 325 MG TAB PO SCH ×4 (05:18→22:56)
[2018-11-19] MEDS: HYDROcodone/Acetaminophen 5/325 mg Tablet PO PRN ×5 (05:21→22:07)
[2018-11-19] MEDS: traMADol HCl 50 MG TAB PO PRN ×3 (06:22→16:23)
[2018-11-19] MEDS: Gabapentin 300 MG CAP PO SCH ×3 (08:06→20:04)
[2018-11-19] MEDS: Ferrous Sulfate 325 MG TAB PO SCH ×2 (08:07→16:22)
[2018-11-19] MEDS: Famotidine 20 MG TAB PO SCH ×2 (08:07→20:04)
[2018-11-19] MEDS: Enoxaparin Sodium 30 MG/0.3 ML SYRINGE SC SCH (08:07)
[2018-11-19] MEDS: clonazePAM 1 MG TAB PO SCH ×3 (08:07→20:03)
[2018-11-19] MEDS: FLUoxetine HCl 20 MG CAP PO SCH (08:07)
[2018-11-19] MEDS: tiZANidine HCl 4 MG TAB PO SCH ×3 (08:07→20:04)
[2018-11-19] MEDS: Ibuprofen 200 MG TAB PO SCH ×2 (08:07→16:22)
[2018-11-19] MEDS: Polyethylene Glycol 3350 17 GM Packet PO SCH (08:08)
[2018-11-19] MEDS: Senokot S 8.6-50 MG TAB PO SCH ×2 (08:08→20:04)
[2018-11-19] MEDS: Ascorbic Acid 500 mg Chewable Tablet PO SCH ×2 (08:11→16:22)
--- NOTE | 2018-11-19 16:20 | PRG ---
DATE OF SERVICE: 11/19/2018 SUBJECTIVE: The patient was seen this morning on rounds. She was sitting up and doing well. She reported no acute events overnight. Denied any complaints. The patient was advised that she would be discharged today with home physical therapy, but she requested to stay an additional day for more physical therapy. We did discuss this at length with her, but she did not agree. OBJECTIVE: VITAL SIGNS: Temperature 98.6, pulse 90, respirations 18, oxygen saturation 93% on room air, and blood pressure 138/76. GENERAL: Well-appearing elderly female, sitting up in bed with no signs of acute distress. PULMONARY: Equal chest rise and fall. Clear breath sounds bilaterally. No signs of acute respiratory distress. CARDIAC: Regular rate and rhythm. No murmurs, gallops, or rubs. GI: Abdomen is soft, nontender, and nondistended. EXTREMITIES: 2+ pulses in all extremities. No significant swelling noted. Gross motor and sensation are intact. NEUROLOGIC: GCS is 15. LABORATORY FINDINGS: There are no new laboratory findings to discuss. DIAGNOSTIC FINDINGS: There are no new diagnostic findings to discuss. ASSESSMENT: 1. Status post mechanical fall. 2. Left femoral neck fracture. 3. Acute adrenal insufficiency. 4. History of chronic obstructive pulmonary disease, post-traumatic stress disorder, and bipolar disorder. PLAN: The patient will be discharged tomorrow with home physical therapy. This has been arranged by Case Management. We will continue current diet and pain medications. Continue supportive care. The patient is ready for discharge at this time. Job ID: [id number]
[2018-11-19] MEDS: diphenhydrAMINE 25 MG CAP PO SCH (20:04)
[2018-11-19] MEDS: Nicotine 14 MG PATCH TD SCH (22:08)
--- NOTE | 2018-11-20 00:42 | PRG ---
DATE OF SERVICE: 11/19/2018 SUBJECTIVE: The patient remains on the surgical floor. The patient is currently asleep and in no distress. The patient is postop day #6, left hip hemiarthroplasty. OBJECTIVE: VITAL SIGNS: Stable, afebrile. GENERAL: Elderly female, resting comfortably in hospital bed, no acute distress. RESPIRATORY: Respirations, even and nonlabored. ASSESSMENT: 1. Status post mechanical fall. 2. Left femoral neck fracture, postop day #6, left hip hemiarthroplasty. 3. Acute adrenal insufficiency, improved. 4. History of chronic obstructive pulmonary disease, posttraumatic stress disorder, and bipolar disorder. PLAN: The patient will be discharged tomorrow with home physical therapy. Continue supportive care. Continue current diet as tolerated. Job ID: [id number]
[2018-11-20] MEDS: Ibuprofen 200 MG TAB PO SCH ×2 (01:06→08:42)
[2018-11-20] MEDS: HYDROcodone/Acetaminophen 5/325 mg Tablet PO PRN ×3 (02:24→11:49)
[2018-11-20] MEDS: Acetaminophen 325 MG TAB PO SCH ×2 (06:31→11:54)
[2018-11-20 08:00] VITALS: BP 135/70; TEMP 98.2
[2018-11-20] MEDS: Senokot S 8.6-50 MG TAB PO SCH (08:41)
[2018-11-20] MEDS: Polyethylene Glycol 3350 17 GM Packet PO SCH (08:41)
[2018-11-20] MEDS: Gabapentin 300 MG CAP PO SCH (08:42)
[2018-11-20] MEDS: Ascorbic Acid 500 mg Chewable Tablet PO SCH (08:42)
[2018-11-20] MEDS: Famotidine 20 MG TAB PO SCH (08:42)
[2018-11-20] MEDS: clonazePAM 1 MG TAB PO SCH (08:42)
[2018-11-20] MEDS: tiZANidine HCl 4 MG TAB PO SCH (08:42)
[2018-11-20] MEDS: Enoxaparin Sodium 30 MG/0.3 ML SYRINGE SC SCH (08:42)
[2018-11-20] MEDS: FLUoxetine HCl 20 MG CAP PO SCH (08:42)
[2018-11-20] MEDS: traMADol HCl 50 MG TAB PO PRN (08:46)
[2018-11-20] MEDS: Ferrous Sulfate 325 MG TAB PO SCH (08:51)
--- NOTE | 2018-11-21 03:24 | DIS ---
DATE OF ADMISSION: 11/12/2018 DATE OF DISCHARGE: 11/20/2018 ADMISSION DIAGNOSES: 1. Mechanical fall. 2. Left femoral neck fracture. 3. Acute adrenal insufficiency. DISCHARGE DIAGNOSES: 1. Mechanical fall. 2. Left femoral neck fracture. 3. Acute adrenal insufficiency. CONSULTING PHYSICIAN: Dr. Manriquez of Orthopedic Surgery. PROCEDURES: The patient went to the OR on November 13, 2018, had a left hip hemiarthroplasty. HOSPITAL COURSE: The patient is a 72-year-old female, who presented to the emergency department after a mechanical fall. She was found to have a left femoral neck fracture. She went to the OR on November 13, 2018, and had a left hip hemiarthroplasty by Dr. Manriquez. The patient was also found to have acute adrenal insufficiency after persistent hypotension. She was treated with steroids. Postoperatively, the patient was able to ambulate with physical and occupational therapy. Her pain was well controlled. She was voiding without difficulties and she was having bowel movements. She was discharged home with home physical therapy and a walker. She already has a walker and a ramp at home. DISCHARGE DISPOSITION: Home with home physical therapy. DISCHARGE CONDITION: Satisfactory. PHYSICAL EXAMINATION: VITAL SIGNS: Temperature 98.2, pulse 96, respirations 12, oxygen saturation 92% on room air, blood pressure 135/70. GENERAL: Well-appearing elderly female, sitting up with no signs of acute distress. PULMONARY: Equal chest rise and fall. No signs of acute respiratory distress. EXTREMITIES: 2+ pulses in all extremities. Gross motor and sensation are intact. No significant swelling noted. NEUROLOGIC: GCS is 15. DISCHARGE INSTRUCTIONS: The patient was discharged home with home physical therapy. She is weightbearing as tolerated with posterior hip precautions on the left leg. She has a regular diet with Ensure twice a day. She has an incentive spirometer and a walker as well. DISCHARGE MEDICATIONS: Included; 1. Tylenol. 2. Ibuprofen. 3. MiraLAX. 4. Senokot S. 5. Aspirin. 6. Prozac. 7. Clonazepam. 8. Loperamide. 9. Diphenhydramine. 10. Ambien. 11. Gabapentin. 12. Tramadol. 13. Tylenol #3. 14. Zantac. 15. Fioricet. FOLLOWUP APPOINTMENTS: The patient is to follow up with Dr. Manriquez in 10 days. No need for followup with Dr. Mackey. This is merely a summary of the patient's hospitalization. For full details, please see her medical record in its entirety. Job ID: [id number]
== END 2018-11-20 14:20 | disposition home or self-care (01) | DRG 470 ==
LOC: ERS 16:51 → SURG B 18:00
PROVIDERS: ADMIT Specialist; ATTEND Specialist
PROC: 0SRS0JA Replacement of Left Hip Joint, Femoral Surface with Synthetic Substitute, Uncemented, Open Approach (ICD-10-PCS; principal; 2018-11-13)
DX: S72.002A Fracture of unspecified part of neck of left femur, initial encounter for closed fracture (principal); D62 Acute posthemorrhagic anemia; E27.40 Unspecified adrenocortical insufficiency; J44.9 Chronic obstructive pulmonary disease, unspecified; F43.10 Post-traumatic stress disorder, unspecified; E87.6 Hypokalemia; F31.9 Bipolar disorder, unspecified; W18.39XA Other fall on same level, initial encounter; Y93.01 Activity, walking, marching and hiking; M81.0 Age-related osteoporosis without current pathological fracture; G43.909 Migraine, unspecified, not intractable, without status migrainosus; I95.89 Other hypotension; Y92.098 Other place in other non-institutional residence as the place of occurrence of the external cause; Z90.710 Acquired absence of both cervix and uterus; R50.9 Fever, unspecified
CPT/HCPCS: 36415; 36430; 71045; 72170; 80048; 80053; 81003; 82533; 82550; 83735; 84100; 85014; 85018; 85025; 85049; 86850; 86900; 86901; 93005; 93970; 94640; 96374; 96375; G0390; J0131; J0690; J1650; J1720; J1885; J2001; J2250; J2270; J2405; J2704; J3010; J3490; J7050; J7620; P9016; Q0163; S0028

== ENCOUNTER 2019-01-15 17:05 | Observation (INO) | payer MEDICARE ==
[2019-01-15] MEDS ORDERED: Aspirin Chewable 81 MG TAB ONE (17:33)
[2019-01-15 17:47] LABS: Bilirubin Negative (Negative); Blood, Urine Trace (Negative); Clarity Cloudy (Clear); Glucose, Urine (Dipstick) Negative (Negative); Leukocyte Large (Negative); Nitrite Positive (Negative); Protein, Urine (Dipstick) Negative (Neg-Trace); Urobilinogen 0.2 mg/dL (Less than 2)
[2019-01-15 17:47] LABS: #Lymphocytes 3.5 thou/uL (1.20-3.40); #Monocytes 0.7 thou/uL (0.11-0.59); #Neutrophils 6.3 thou/uL (1.40-6.50); %Basophils 0.4 % (0.0-1.0); %Eosinophils 0.4 % (0.0-10.0); %Lymphocytes 32.9 % (21.0-51.0); %Monocytes 6.9 % (0.0-10.0); %Neutrophils 59.4 % (42.0-75.0); Mean Corpuscular Hemoglobin 32.2 pg (27.0-31.0); Mean Corpuscular Volume 97.7 fL (78.0-98.0); Mean Platelet Volume 6.4 fL (7.4-10.4); Platelet Count 399 thou/uL (130-400); RBC Distribution Width 12.6 % (11.5-14.5); Red Blood Cell (RBC) Count 3.72 mill/uL (4.20-5.40); White Blood Cell (WBC) Count 10.5 thou/uL (4.8-10.8)
[2019-01-15 17:50] LABS: Bacteria/HPF 3+ HPF (None Seen); Squamous Epithelial 0-3 HPF (0-3)
[2019-01-15 18:02] LABS: ALT (SGPT) 10 U/L (8-55); AST (SGOT) 14 U/L (5-34); Albumin 4.3 g/dL (3.4-4.8); Alkaline Phosphatase 78 U/L (40-110); Anion Gap 18 mmol/L (10-20); BUN (Urea Nitrogen) 6 mg/dL (9.8-20.1); Bilirubin, Total 0.5 mg/dL (0.2-1.2); CK (CPK) 49 U/L (29-168); Calc. Creatinine Clearance 0 mL/min (70-130); Calcium 9.5 mg/dL (7.8-10.44); Carbon Dioxide 23 mmol/L (23-31); Chloride 103 mmol/L (98-107); Estimated GFR-MDRD 71; Glucose 118 mg/dL (83-110); Potassium 3.3 mmol/L (3.5-5.1); Protein, Total 7.3 g/dL (6.0-8.3); Sodium 141 mmol/L (136-145)
--- NOTE | 2019-01-15 18:03 | RAD ---
RADIOGRAPH CHEST 1 VIEW: DATE: 01/15/2019 HISTORY: 73-year-old female with dyspnea, chest pain, tachycardia and chills. FINDINGS: The image is overexposed. There is no gross evidence of consolidation. The lateral costophrenic angle s are not effaced. No cardiomegaly. IMPRESSION: No acute findings
[2019-01-15] MEDS ORDERED: Sodium Chloride 0.9% 100 ML ONE (18:22)
[2019-01-15] MEDS ORDERED: Enoxaparin Sodium 40 MG/0.4 ML SYRINGE ONE (18:22)
[2019-01-15] MEDS ORDERED: cefTRIAXone\\ROCEPHIN 2 GM VIAL ONE (18:22)
[2019-01-15] MEDS ORDERED: methylPREDNISolone Sod Succ 40 MG VIAL ONE (18:48)
[2019-01-15] MEDS ORDERED: Famotidine/PF 20 mg/2ml Vial ONE (18:48)
[2019-01-15] MEDS ORDERED: diphenhydrAMINE 50 MG/ML VIAL ONE (18:48)
[2019-01-15] MEDS ORDERED: Water For Inject, Bacteriostat 30 ML ONE (18:49)
--- NOTE | 2019-01-15 20:14 | CT ---
EXAM: CT angiogram of the chest including 3-D rendering: HISTORY: Dyspnea shortness of breath chest pressure COMPARISON: None FINDINGS: There is adequate opacification of the pulmonary arteries. No evidence for aortic aneurysm or dissection. No convincing CT evidence for acute pulmonary embolism. Extensive bilateral hyperinflation and bullous emphysema changes No evidence for mediastinal mass or adenopathy. No evidence for pleural or pericardial effusion. 2.4 cm left renal cyst. Status post cholecystectomy with dilatation of the common bile duct and centr al intrahepatic ducts. IMPRESSION: No convincing CT evidence for acute pulmonary embolism. Other findings as above.
[2019-01-15 20:58] LABS: Lactic Acid 1.4 mmol/L (0.5-2.2)
[2019-01-16 00:13] LABS: Troponin I Less than 0.010 ng/mL (< 0.028)
[2019-01-16 02:26] VITALS: BMI 17.4
[2019-01-16] MEDS ORDERED: Ondansetron PF 4 MG/2 ML Vial IVP PRN ×2 (02:32→09:23)
[2019-01-16] MEDS ORDERED: Ondansetron ODT 4 MG TAB SL PRN (02:32)
[2019-01-16] MEDS ORDERED: Acetaminophen 325 MG TAB PO PRN ×2 (02:32→09:23)
[2019-01-16] MEDS ORDERED: Sodium Chloride 0.9% 1,000 ML IV SCH (02:45)
[2019-01-16] MEDS ORDERED: FLU VACC TS2019-20(65YR UP)/PF 180 MCG/0.5 ML SYRINGE IM ONE (09:00)
[2019-01-16] MEDS ORDERED: clonazePAM 0.5 MG TAB PO SCH (09:00)
[2019-01-16] MEDS ORDERED: Ondansetron ODT 4 MG TAB PO PRN (09:23)
[2019-01-16 10:20] LABS: Free T4 (Free Thyroxine) 0.94 ng/dL (0.70-1.48); Thyroid Stimulating Hormone 0.2423 uIU/mL (0.35-4.94)
--- NOTE | 2019-01-16 11:02 | HP ---
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 She says that she has been stable on Klonopin 1 mg 3 to 4 times a day for over 10 years. She says that her primary care physician says that he was thinking about no longer prescribing benzodiazepines and she got concerned and thought will maybe she should stop taking it. She says that she thought she was tapering herself off well. She had decreased it down from 3 times a day down to 2 times a day, then one time a day, but instead of cutting the pills in half, she says she just stopped altogether and thought that this was going to be sufficient. However, she started feeling very anxious and then her heart rate started to go up. She said she felt "really bad," and she says that she was feeling so bad that she went to the emergency room for evaluation, [facility] There, she was found to be in sinus tachycardia with a heart rate around 120 to 130s. She was sent over here to make sure she did not have a pulmonary embolism. A CT angiogram of the chest was done, which was negative and a chemistry panel was also negative and she was placed in observation. Otherwise, by the time I see her, her heart rate is back down into the 70s and 80s. She says she still feels a little bit uneasy, but otherwise no significant complaints. REVIEW OF SYSTEMS: All systems are reviewed and are negative except for that mentioned in the history of present illness. PAST MEDICAL HISTORY: Significant for COPD, PTSD, and bipolar disorder. PAST SURGICAL HISTORY: She has had surgery on her C-spine and L-spine for diskectomy and fusion. ALLERGIES: TO SULFA, CONTRAST MEDIA. FAMILY HISTORY: Significant for cerebrovascular accident in her mother. Coronary artery disease in her father. SOCIAL HISTORY: She is a retired RN. Nonsmoker. Nondrinker. CURRENT MEDICATIONS: Include; 1. Aspirin 81 mg daily. 2. Tramadol 50 mg q.4 hours as needed. 3. Tizanidine 4 mg t.i.d. as needed. 4. Loperamide 2 mg as directed. 5. Tylenol q.4 hours as needed. PHYSICAL EXAMINATION: GENERAL: She is alert and oriented. She appears to be in no acute distress. VITAL SIGNS: Blood pressure is 125/58, heart rate 84, respiratory rate of 16, and temperature is 98.1. HEENT: Pupils are equal, round, and reactive. Extraocular muscles are intact. Her sclerae are anicteric. Throat; no erythema, no exudates. NECK: No adenopathy. No bruits. LUNGS: Clear to auscultation. No wheezing. No rales. No rhonchi. CARDIOVASCULAR: She has a normal S1 and S2. No S3 or S4. No murmurs, clicks, or rubs. ABDOMEN: Soft, nontender, and nondistended. Positive for bowel sounds. No rebound. No guarding. No organomegaly. EXTREMITIES: There is no clubbing or cyanosis. No edema. NEUROLOGICAL: Nonfocal. LABORATORY RESULTS: Sodium 141, potassium 3.3, chloride 103, CO2 is 23, BUN of 6, creatinine 0.8, and glucose is 118. White blood cell count is 10.5, hemoglobin 12, hematocrit is 36.3, and platelet count is 393. Urinalysis shows a 3+ bacteria and positive nitrites as well as leukocyte esterase. ASSESSMENT AND PLAN: 1. This is a pleasant 73-year-old female, who presented with tachycardia, which was sinus tachycardia, likely related to benzodiazepine withdrawal. She has been placed in observation and actually this morning, she is much improved. Her heart rate is back to baseline and clinically, she is afebrile. White count is normal. CT angiogram of the chest was negative. Therefore, I suspect she can be discharged home on a low dose of Klonopin 0.5 twice a day and then follow up with her primary care physician for further tapering of the medication if she so desires. We will also check a thyroid function test with a TSH and free T4. 2. For urinary tract infection, we will give her single dose of IV Rocephin as this primarily appears to be symptomatic or asymptomatic bacteriuria. Job ID: [id number]
[2019-01-16 12:38] VITALS: BP 123/60; TEMP 97.9
[2019-01-16] MEDS ORDERED: cefTRIAXone\\ROCEPHIN 1 GM in Sodium Chloride 0.9% 100 ML IVPB SCH (18:00)
--- NOTE | 2019-01-17 03:27 | DIS ---
DATE OF ADMISSION: 01/15/2019 DATE OF DISCHARGE: 01/16/2019 PRIMARY CARE PHYSICIAN: Dr. Mayberry. DISCHARGE DISPOSITION: Home. DISCHARGE DIAGNOSES: 1. Benzodiazepine withdrawal. 2. Chronic obstructive pulmonary disease. 3. Generalized anxiety. DISCHARGE MEDICATIONS: Include: 1. Klonopin 0.5 mg twice daily. 2. Aspirin 81 mg twice daily. 3. Tramadol 50 mg q.4 hours as needed. 4. Tizanidine 4 mg p.o. t.i.d. 5. Loperamide 2 mg as directed. 6. Tylenol p.r.n. The patient had a CT angiogram of the chest during the admission, which was negative for PE. CODE STATUS: Full code. ALLERGIES: TO CONTRAST AND SULFA. HOSPITAL COURSE: Ms. Cantu is a pleasant 73-year-old female, who has been on Klonopin for over 10 years for generalized anxiety. She tried to wean herself off the medication and believes that she may have done this too abruptly. After stopping completely, she began feeling anxious and had tachycardia. For this reason, she came to the ER and was found to be in benzodiazepine withdrawal. She was placed on observation. A CT angio was done to rule out PE, this was negative. Thyroid function tests were also negative and the following day, she was feeling much better, but still a bit anxious and as a result, we placed her back on the lower dose of the Klonopin 0.5 twice daily and she will follow up with her primary care physician in order to taper this further. Job ID: [id number]
== END 2019-01-16 16:26 | disposition home or self-care (01) ==
LOC: SCSER 17:05 → 2SW 18:33
PROVIDERS: ADMIT Internal Medicine; ATTEND Internal Medicine
DX: F13.239 Sedative, hypnotic or anxiolytic dependence with withdrawal, unspecified (principal); R00.0 Tachycardia, unspecified; F41.1 Generalized anxiety disorder; F43.10 Post-traumatic stress disorder, unspecified; J44.9 Chronic obstructive pulmonary disease, unspecified; F31.9 Bipolar disorder, unspecified; T42.4X6A Underdosing of benzodiazepines, initial encounter; Z79.82 Long term (current) use of aspirin; Z79.899 Other long term (current) drug therapy; Z88.2 Allergy status to sulfonamides; Z91.041 Radiographic dye allergy status; Z91.128 Patient's intentional underdosing of medication regimen for other reason; Z98.1 Arthrodesis status
CPT/HCPCS: 71045; 71275; 80053; 82550; 83605; 83880; 84439; 84443; 84484 ×2; 85025; 85379; 87040; 87077; 87086; 87186; 90662; 93005; 94760; 96361; 96365; 96367; 96375; 99285; G0008; G0378 ×2; 36415; 81003; 81015; 90471; J0696; J1200; J1650; J2920; J3370; J3490; S0028